=== PATIENT | female | born 1980 | race African-American/Black ===

== ENCOUNTER 2021-04-03 14:05 | Emergency (ER) | payer OTHER, SELFPAY ==
[2021-04-03 15:36] VITALS: BP 178/98; PULSE 70; RESP 18; TEMP 36.9; O2SAT 100; BMI 24.2
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
[2021-04-03 18:50] LABS: COVID-19 Test Negative (Negative)
--- NOTE | 2021-04-03 18:51 | ED_ITS ---
HPI - URI/Sore Throat General Chief Complaint: Upper Respiratory Symptoms Stated Complaint: Cold symptoms Time Seen by Provider: 04/03/21 18:15 Source: patient and family Mode of arrival: ambulatory History of Present Illness HPI Narrative: 40-year-old female with a past medical history of anemia presenting to the ED complaining of sore throat, nasal congestion and right ear pain x2 days. Reports daughter with URI symptoms as well. Denies cough, SOB, CP, recent travel, difficulty swallowing, fever/chills MD elicited complaint: sore throat, rhinorrhea and nasal congestion Related Data Allergies Allergy/AdvReac Type Severity Reaction Status Date / Time No Known Allergies Allergy Verified 04/03/21 15:35 Review of Systems Review of Systems: Constitutional: No Fever, No Chills ENT/Mouth: + Ear Pain, + Nasal Congestion, No Sinus Pain, No Hoarseness, + sore throat, + Rhinorrhea, No Swallowing Difficulty Cardiovascular: No Chest Pain, No SOB Respiratory: No Cough, No Sputum Gastrointestinal: No Nausea, No Vomiting, No Diarrhea, No Constipation, No Abdominal pain Genitourinary: No Dysuria, No Urinary Frequency, No Urgency, No Flank Pain Musculoskeletal: No joint pain, No Myalgias, No Joint Swelling Skin: No Skin Lesions, No rash Neuro: No Weakness, No Numbness, No Paresthesias Yes all other systems are reviewed and are negative [facility] Past Medical History Attestation statement: The following information was validated with the patient. Medical History (Updated 04/03/21 @ 18:53 by TALI Rucker) Anemia Physical Exam Vital Signs: Vital Signs: Last Vital Signs Temp 98.4 F 04/03/21 15:36 Pulse 70 04/03/21 15:36 Resp 18 04/03/21 15:36 BP 178/98 H 04/03/21 15:36 Pulse Ox 100 04/03/21 15:36 Body Mass Index 24.2 Const: General: cooperative, healthy appearing and no acute distress Orientation/consciousness: patient oriented x3 Limitations: no limitations HENMT: Head: Yes normal to inspection Ears: hearing grossly normal bilaterally, external ears normal and TM's normal bilaterally General nose exam: Normal external nose present Face and sinus: Yes normal facial exam Mouth: Normal oral and palatal mucosa present Throat: Yes posterior oropharynx normal, Yes tonsils normal, Yes uvula midline, No uvula laterally displaced and No uvular edema Eyes: General: appearance normal, both eyes and all related structures EOM: EOMs intact bilaterally Neck: Neck: Yes normal visual inspection, Yes no lymphadenopathy and Yes no meningeal signs Resp: Effort & Inspection: normal respiratory effort Auscultation: clear to auscultation bilaterally, no crackles, no rales, no rhonchi and no wheezes Cardio: Rate: regular rate Heart sounds: S1 normal heart sound present and S2 normal heart sound present GI: Inspection: Yes normal to inspection Palpation (GI): Soft to palpation, nontender, no guarding and not rigid Skin: Rashes: no rashes Wounds: no wounds Neuro: General: patient oriented x3 and no meningeal signs Gait exam (Neuro): Normal gait present Extrem: General: Yes normal to inspection MDM - URI/Sore Throat MDM Narrative Medical decision making narrative: 40-year-old female with a past medical history of anemia presenting to the ED complaining of dry cough, sore throat, nasal congestion and right ear pain x2 days. On exam VSS, NAD/well-appearing, physical exam as above, lungs CTA. TMs WNL. Likely viral syndrome. Rule COVID-19. low concern for pneumonia Medical Records Attestation: I reviewed the patient's medical records. Lab Data Attestation: I reviewed the patient's lab results. Labs: Lab Results 04/03/21 Range/Units 18:26 COVID-19 (MANUEL) Negative (Negative) COVID-19 Clin Com See Note Discharge Plan Discharge Clinical Impression: Upper respiratory infection Qualifiers: URI type: unspecified URI Qualified Code(s): J06.9 - Acute upper respiratory infection, unspecified Patient Disposition: Home, Self-Care Instructions: Viral Syndrome (ED) Additional Instructions: You tested negative for COVID-19 today in the ED The stay hydrated at home Rest, take Tylenol Motrin as needed Follow-up with her doctor Referrals: Physician,Unknown J [Primary Care Provider] - 2 days
== END 2021-04-03 19:18 | disposition home or self-care (01) ==
PROVIDERS: Emergency Provider Emergency Medicine
DX: J06.9 Acute upper respiratory infection, unspecified (principal); Z20.822 Contact with and (suspected) exposure to COVID-19
CPT/HCPCS: 36415; 87635; 99283

== ENCOUNTER 2024-07-13 07:43 | Emergency (ER) | payer OTHER, SELFPAY ==
[2024-07-13 07:55] VITALS: BP 146/85; PULSE 60; RESP 18; TEMP 36.2; O2SAT 99; BMI 24.1
--- NOTE | 2024-07-13 09:38 | ED_ITS ---
HPI - Eye Problem General Chief complaint: Eye Problems Stated complaint: Irritation R eye Time Seen by Provider: 07/13/24 09:04 Source: patient, RN notes reviewed and old records reviewed Mode of arrival: ambulatory History of Present Illness ED Provider: Genie Mercer PA-C HPI Narrative: 43-year-old female with a past medical history of anemia presenting to the ED complaining of right periorbital irritation, erythema, and swelling x 5 days s/p using old mascara. States initially noted a stye to eye with some tearing, no states symptoms are improving. Denies known injury, trauma, vision loss, blurry shows double vision, pain with EOMs, foreign body sensation, nausea/vomiting, glasses or contact use Related Data Previous Rx's ?Medication ?Instructions ?Recorded erythromycin 5 mg/gram (0.5 %) eye 1 appl ophthalmic (eye) QID 5 days 07/13/24 ointment #3.5 grams Allergies Allergy/AdvReac Type Severity Reaction Status Date / Time No Known Allergies Allergy Verified 07/13/24 07:57 Review of Systems Review of Systems: Yes all other systems are reviewed and are negative Constitutional: Constitutional: Reports as per HPI Eyes: Eyes: Denies photophobia PMFSH Past Medical History Attestation statement: The following information was validated with the patient. Source: old records reviewed Medical History Anemia Social History Social History Advance Directives: No Advance Directives Information Provided: Yes Physical Exam Vital Signs: Vital Signs: Last Vital Signs Temp 97.1 F 07/13/24 07:55 Pulse 60 07/13/24 07:55 Resp 18 07/13/24 07:55 BP 146/85 H 07/13/24 07:55 Pulse Ox 99 07/13/24 07:55 O2 Del Method Room Air 07/13/24 07:55 BMI result Body Mass Index 24.1 Const: General: cooperative, healthy appearing and no acute distress Orientation/consciousness: patient oriented x3 Limitations: no limitations HEENT: Head: Yes normal to inspection and Yes atraumatic Ears: hearing grossly normal bilaterally General nose exam: Normal external nose present Face and sinus: Yes normal facial exam Eyes: Other: Right periorbital region with mild erythema, dry skin, and puffiness. + internal hordeolum noted to right upper eyelid with mild tenderness EOMs intact without entrapment or pain. PERRLA General: appearance normal, both eyes and all related structures Conjunctivae: conjunctivae normal Pupils: Equal, round and reactive pupils present EOM: EOMs intact bilaterally Direct Ophthalmoscopy: normal light reflex, no photophobia and No photophobia Neck: Neck: Yes normal visual inspection and Yes no meningeal signs Resp: Effort & Inspection: normal respiratory effort and no respiratory distress Cardio: Rate: regular rate Skin: Rashes: no rashes Wounds: no wounds Neuro: General: patient oriented x3, tone normal and no meningeal signs Cranial nerves: Yes CN's II-XII intact bilaterally and Yes Equal, round and reactive pupils present Gait exam (Neuro): Normal gait present Extrem: General: Yes normal to inspection Medical Decision Making Medical Decision Making MDM Narrative: 43-year-old female with a past medical history of anemia presenting to the ED complaining of right periorbital irritation, erythema, and swelling x 5 days s/p using old mascara. On exam vital signs stable, NAD, nontoxic appearing, physical exam as noted above consistent with internal hordeolum with mild periorbital puffiness/dry skin. Low suspicion for preseptal or septal cellulitis or corneal abrasion/ulceration. No evidence of globe rupture. Plan: Erythromycin, PCP/ophthalmology follow up Please refer to course for remaining clinical decision making, interpretation of labs/imaging results, and discussions with consultants and/or family members. Results discussed with patient including worrisome signs and symptoms and strict return precautions, and when to return to the emergency department. They verbalized understanding and feel safe for discharge at this time. Differential Diagnosis Differential Diagnoses: The differential diagnosis associated with the presentation includes As above Lab Data [facility] Lab Attestation statement: I reviewed the patient's lab results. Radiology Impression Discussion of test interpretation with radiology: I have reviewed the radiologist's reading. External Record Review External record reviewed: Inpatient record, Office record, Outpatient record, Prior outpatient labs, Prior outpatient radiology, Primary care record and Outside ED record Tests considered The following testing was considered but not selected: As above Prescription Management I considered prescription management with: Antibiotic Social Determinants Patient?s care significantly limited by Social Determinants of Health including: Other Social Determinant of Health Discharge Plan Discharge Clinical Impression: Hordeolmarisabel Patient Disposition: Home, Self-Care Instructions: Ted (ED) Additional Instructions: Please apply warm compresses and gentle massage Use erythromycin eye ointment as prescribed If area becomes increasingly swollen, red, you develop any vision change, vision loss return to the emergency department Follow up with her doctor and Ophthalmology Prescriptions: New erythromycin 5 mg/gram (0.5 %) ointment 1 appl ophthalmic (eye) QID 5 Days Qty: 3.5 0RF Referrals: Gavin Hassan [Physician] - Physician,Unknown J [Primary Care Provider] - Print Language: Pakistani
[2024-07-13 09:45] VITALS: BP 146/85; PULSE 60; RESP 18; TEMP 36.2; O2SAT 99
== END 2024-07-13 09:50 | disposition home or self-care (01) ==
PROVIDERS: Emergency Provider Emergency Medicine Emergency Medical Services
DX: H00.021 Hordeolum internum right upper eyelid (principal); H57.11 Ocular pain, right eye
CPT/HCPCS: 99282; 99283

== ENCOUNTER 2024-10-09 00:45 | Emergency (ER) | payer OTHER, SELFPAY ==
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
[2024-10-09 00:47] VITALS: BP 138/72; PULSE 71; O2SAT 100
[2024-10-09 00:52] VITALS: BP 154/99; PULSE 70; RESP 16; TEMP 36.8; O2SAT 100; BMI 25.5
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
[2024-10-09] MEDS: Ibuprofen 600 MG TABLET PO (02:43)
[2024-10-09 03:16] VITALS: BP 148/95; PULSE 64; RESP 16; TEMP 36.6; O2SAT 98
[2024-10-09 03:17] VITALS: BP 148/95; PULSE 64; RESP 16; TEMP 36.6; O2SAT 98
== END 2024-10-09 03:18 | disposition home or self-care (01) ==
PROVIDERS: Emergency Provider Internal Medicine; PCP Family Medicine
DX: S20.212A Contusion of left front wall of thorax, initial encounter (principal); R07.89 Other chest pain; V43.52XA Car driver injured in collision with other type car in traffic accident, initial encounter; Y93.9 Activity, unspecified; Y92.410 Unspecified street and highway as the place of occurrence of the external cause; Y99.8 Other external cause status
CPT/HCPCS: 71046; 99283; 99284

== ENCOUNTER → 2024-10-09 02:28 | Outpatient (BNV) | payer OTHER, SELFPAY | PROVIDERS: Emergency Provider Internal Medicine; PCP Family Medicine; Visit Provider Radiology Diagnostic Radiology | DX: S20.212A Contusion of left front wall of thorax, initial encounter (principal); S20.01XA Contusion of right breast, initial encounter | CPT/HCPCS: 71046 ==

== ENCOUNTER 2024-12-29 11:18 | Outpatient (AMB) | payer OTHER, SELFPAY ==
[2024-12-29 11:20] VITALS: BP 132/84; PULSE 69; TEMP 36.7; O2SAT 98; BMI 29.5
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
== END 2024-12-29 11:47 | disposition home or self-care (01) ==
PROVIDERS: PCP Family Medicine; Visit Provider Physician Assistant
DX: M54.9 Dorsalgia, unspecified (principal); R07.81 Pleurodynia; V89.2XXA Person injured in unspecified motor-vehicle accident, traffic, initial encounter; M25.511 Pain in right shoulder; M25.562 Pain in left knee